=== PATIENT | male | born 1975 | race Caucasian/White ===

== ENCOUNTER 2017-02-08 06:54 | Day surgery (SDC) | payer OTHER ==
[~2017-02-08] VITALS: Ht 193 cm; Wt 145.1 kg
--- NOTE | ~2017-02-08 | EKG ---
[address] [address] ELECTROCARDIOGRAM REPORT Name: MARGE CASTANON Room #: 150-6 [facility].#: [id number] Admission: 02/08/17 Attend Phys: Didier Timmons MD Discharge: Date of : 79 Report #: [id number] THIS REPORT FOR: //name// [facility] Test Date: 2017-02-08 Test Time: 10:18:31 Pat Name: MARGE CASTANON Department: Room: 150 6 Gender: M Braddisher: Kenneth MAY : 1975 Requested By: Rashaad Marte Order Number: [id number] MD: Newton Hussein Measurements Intervals [place] Rate: 73 P: 32 FL: 171 QRS: 5 QRSD: 91 T: 14 QT: 387 QTc: 427 Interpretive Statements Sinus rhythm Abnormal R-wave progression, early transition No previous ECG available for comparison Electronically Signed On 02-09-2017 7:36:36 CDT by Newton Hussein [email or web address] <ELECTRONICALLY SIGNED> By: Newton Hussein MD, [facility] 02/09/17 0736 1018 Newton Hussein MD, FACC /EPI
--- NOTE | ~2017-02-08 | O ---
[facility] [place] [address] OPERATIVE REPORT Name: MARGE CASTANON Room #: 150-6 [facility]..#: [id number] Admission: 02/08/17 Attend Phys: Didier Timmons MD Discharge: Date of : 79 Report #: [id number] THIS REPORT FOR: //name// CC: Jackie Timmons DATE OF SERVICE: 02/08/2017 PREOPERATIVE DIAGNOSES: Right knee lateral meniscus tear and chondromalacia lateral tibial plateau. POSTOPERATIVE DIAGNOSES: Right knee lateral meniscus tear and chondromalacia lateral tibial plateau along with medial meniscus tear. PROCEDURE: Right knee arthroscopy, partial medial meniscectomy, and partial lateral meniscectomy. SURGEON: Didier Timmons MD ANESTHETIC: General. INDICATIONS: See hospital H and P. DESCRIPTION OF PROCEDURE: After adequate general anesthesia had been obtained, the patient's right lower extremity was prepped and draped in the usual meticulous sterile fashion. Limb was exsanguinated with gravity, tourniquet inflated to 350 torr. Superomedial portal was established by first infiltrating with 0.5% Naropin, then making a stab incision with 11 blade. Inflow cannula was placed. The knee was insufflated with fluid. Anterolateral and anteromedial portals were established utilizing the same technique. Complete diagnostic arthroscopy was performed. Medial compartment demonstrated a small flap tear posterior horn medial meniscus. This was debrided with basket and yaw to a stable rim. Chondral surface was preserved. Cruciate ligaments were intact. Lateral compartment demonstrated a flap tear, anterior horn of the lateral meniscus along with degenerative fraying of the central rim of the meniscus. This was smoothed with baskets and yaw. Chondral surfaces were preserved laterally. On the femoral condyle tibial plateau, a grade 2 chondromalacia centrally, but no unstable chondral fragments. He did have grade 2 chondromalacia on the medial femoral condyle as well, which was smoothed with a shaver involving the lateral weightbearing dome of the medial femoral condyle. Patellofemoral compartment demonstrated no significant abnormality. [address] [address] OPERATIVE REPORT Name: PRASHANTH CASTANONGIBSON Carrion Room #: 150-6 [facility].#: [id number] Admission: 02/08/17 Attend Phys: Didier Timmons MD Discharge: Date of : 79 Report #: [id number] At this time, the knee was irrigated copiously, 0.5% Naropin infiltrated in the knee. The portals were closed with 4-0 nylon. Sterile compressive dressing was applied. Tourniquet deflated. By: [id number] Didier Timmons MD /nt
[~2017-02-08 06:54] MED LIST: DIOVAN320 MG PO; TESTONE CI200 MG/1 M SUBLING
[2017-02-08 10:15] VITALS: BP 153/77
[2017-02-08 13:52] VITALS: BP 153/77
== END 2017-02-08 14:25 | disposition home or self-care (01) ==
LOC: OR 06:54 → TBA 06:54 → OR 08:25
DX: S83.281A Other tear of lateral meniscus, current injury, right knee, initial encounter (principal); M94.261 Chondromalacia, right knee; I10 Essential (primary) hypertension; Z87.442 Personal history of urinary calculi; Z98.890 Other specified postprocedural states; Z89.412 Acquired absence of left great toe; X58.XXXA Exposure to other specified factors, initial encounter; Y93.89 Activity, other specified; Y92.89 Other specified places as the place of occurrence of the external cause; Y99.8 Other external cause status
CPT/HCPCS: 50010; 50101; 50405; 51038; 54170; 56525; 56526; 62110; 62900; 70005